=== PATIENT | male | born 1995 | race Caucasian/White ===

== ENCOUNTER 2020-06-08 11:58 | Emergency (ER) | payer BC, OTHER ==
[2020-06-08 12:04] VITALS: BP 130/66; PULSE 64; TEMP 97; BMI 26.5
--- NOTE | 2020-06-08 12:46 | PDOC ---
History of Present Illness - General Chief Complaint: Pain Stated Complaint: R/FOOT INJURY Time Seen by Provider: 06/08/20 12:06 History Source: Patient Exam Limitations: No Limitations - History of Present Illness Initial Comments: 06/08/20 12:43 25-year-old male history of right ankle sprain presents complaining of right ankle, foot and tib-fib pain status post injury 6 days ago while playing basketball. Patient states he inverted his ankle, did not strike the ground, denies head strike, neck pain, LOC or any other complaints. Patient has been resting, elevating and applying ice to the area with minimal relief. Requesting imaging to rule out fracture. ROS: as above PE: GENERAL: well-appearing, NAD HEAD: NCAT EYES: Pupils equal, round and reactive to light, sclera anicteric, conjunctiva clear ENT: pharynx: no erythema, no exudate, uvula midline NECK: supple CHEST: nontender RESP: clear, no w/r/r CARDIO: rrr, no m/g/r ABD: +BS, soft, nontender, non distended BACK: no midline spinal ttp, no CVAT EXTREMITIES: Normal range of motion, bruising noted to right tib-fib, right lateral ankle and posterior foot, minimal swelling, no bony tenderness to palpation, positive pedal pulses NEUROLOGICAL: Normal speech, ambulating with slight limp SKIN: Warm, Dry Is this a multiple visit Asthma Patient?: No Past History - Medical History Allergies/Adverse Reactions: Allergies Allergy/AdvReac Type Severity Reaction Status Date / Time No Known Allergies Allergy Verified 06/08/20 12:04 COPD: No - Immunization History Immunization Up to Date: No - Psycho-Social/Smoking History Smoking Status: No Smoking History: Current some day smoker Number of Cigarettes Smoked Daily: 0 Cigars Per Day: 0 Information on smoking cessation initiated: No - Substance Abuse Hx (Audit-C & DAST Scrn) How often the patient has a drink containing alcohol: 2-4 times / month Score: In Men: 4 or > Positive; In Women: 3 or > Positive: 2 Screen Result (Pos requires Nsg. Audit-10AR): Negative *Physical Exam - Vital Signs Last Vital Signs Temp Pulse Resp BP Pulse Ox 97 F L 64 18 130/66 99 06/08/20 12:01 06/08/20 12:01 06/08/20 12:01 06/08/20 12:01 06/08/20 12:01 ED Treatment Course - RADIOLOGY Radiology Studies Ordered: Category Date Time Status ANKLE-RIGHT [RAD] Stat Radiology 06/08/20 12:18 Taken FOOT-RIGHT [RAD] Stat Radiology 06/08/20 12:19 Taken LEG TIB/FIB-RIGHT [RAD] Stat Radiology 06/08/20 12:18 Taken Medical Decision Making - Medical Decision Making 06/08/20 12:45 25-year-old male history of right ankle sprain presents complaining of right ankle, foot and tib-fib pain status post injury 6 days ago while playing basketball. Patient states he inverted his ankle, did not strike the ground, denies head strike, neck pain, LOC or any other complaints. Patient has been resting, elevating and applying ice to the area with minimal relief. Requesting imaging to rule out fracture. Declines analgesia at this time Right tib-fib/ankle/foot x-rays 06/08/20 13:01 No acute fracture on right tib-fib/ankle/foot x-rays on my wet read Sven bandage applied Patient to continue RICE Patient is ambulatory Stable for discharge Discharge - Discharge Information Problems reviewed: Yes Clinical Impression/Diagnosis: Right ankle sprain Qualifiers: Encounter type: sequela Involved ligament of ankle: unspecified ligament Qualified Code(s): S93.401S - Sprain of unspecified ligament of right ankle, sequela Condition: Stable Disposition: HOME - Admission No - Follow up/Referral Referrals: Leydi Lozada MD [Primary Care Provider] - - Patient Discharge Instructions Additional Instructions: Rest, elevate, apply Sven wrap Alternate between acetaminophen 650 mg and ibuprofen 400 mg every 6 hours Follow-up with orthopedics within 1 to 2 weeks - Post Discharge Activity
== END 2020-06-08 13:15 | disposition home or self-care (01) ==
LOC: JERFT 11:58
DX: S93.401A Sprain of unspecified ligament of right ankle, initial encounter (principal)
CPT/HCPCS: 73590-TC-RT-FY; 73610-TC-RT-FY; 73630-TC-RT-FY; 99285-25